=== PATIENT | female | born 1980 ===

== ENCOUNTER → 2018-04-08 07:41 | Outpatient (CLI) | payer OTHER, SELFPAY ==
--- NOTE | 2018-04-08 | DI.MRI.S_ITS ---
PROCEDURE: MR LUMBAR SPINE WO CON INDICATIONS: LOW BACK PAIN TECHNIQUE: Noncontrast sagittal T1 spin echo and T2 fast echo, sagittal STIR, axial T1 and T2 fast spin echo through the lumbar spine. In cases with scoliosis, additional coronal T2 fast spin echo may be performed. COMPARISON: None. FINDINGS: Image quality: Excellent. Alignment and Curvature: S. shaped scoliotic curvature can be seen on the ampoule filler images. There is straightening of the normal lumbar lordosis. No focal AP alignment abnormality is seen. Bone Marrow: Marrow is of normal overall signal. No acute vertebral body compression fractures. Spinal Cord: Conus medullaris terminates at the L1 level. Visualized cord demonstrates normal signal and size. Paraspinous Soft Tissues: No paravertebral masses. T12-L1: Normal appearance. L1-L2: Normal appearance. L2-L3: Normal appearance. L3-L4: The disc height is well-preserved. Loss of disc signal is seen at this level. Mild generalized disc bulge is seen. There is an annular fissure present posteriorly, as on series or image 9. No significant neural foraminal narrowing is seen. Mild central canal narrowing is seen. L4-L5: The disc height is well-preserved. Loss of disc signal is seen at this level. Moderate disc bulge is seen, with a central/left disc osteophyte protrusion. There is an associated annular fissure present, as on series 4 image 10. There is mild to moderate right-sided and no significant left-sided neural foraminal narrowing seen. At least moderate central canal narrowing seen at this level. L5-S1: Mild loss of disc height is seen. Loss of disc signal is seen. There is a central disc protrusion seen, as on series 5 image 30. Mild to moderate facet hypertrophy is seen. [id number] bilateral neural foraminal narrowing is seen. Mild central canal narrowing is seen. 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 Annular fissures can be seen at L3-L4 at L4-L5. At least moderate central canal narrowing is seen at L4-L5. Dictated by: Trino Joya M.D. on 04/08/2018 at 9:17 Approved by: Trino Joya M.D. on 04/08/2018 at 9:22
== END ==
PROVIDERS: PCP Family Medicine; Visit Provider Family Medicine
DX: M51.26 Other intervertebral disc displacement, lumbar region (principal); M51.27 Other intervertebral disc displacement, lumbosacral region; M48.061 Spinal stenosis, lumbar region without neurogenic claudication
CPT/HCPCS: 72148